=== PATIENT | male | born 1965 | race African-American/Black ===

== ENCOUNTER 2019-08-17 09:05 | Emergency (ER) | payer MEDICAID ==
[~2019-08-17] VITALS: Ht 185.4 cm; Wt 70.0 kg
[2019-08-17 09:59] VITALS: BP 113/77
== END 2019-08-17 10:37 | disposition home or self-care (01) ==
LOC: ER 09:15
DX: L03.211 Cellulitis of face (principal)
CPT/HCPCS: 99283